=== PATIENT | female | born 1965 | race Caucasian/White ===

== ENCOUNTER 2017-05-05 14:17 | Emergency (ER) | payer OTHER ==
[~2017-05-05] VITALS: Ht 162.6 cm; Wt 85.0 kg
[2017-05-05] MEDS ORDERED: PLEASE ENTER HEIGHT AND WEIGHT AND ALLERGIES MC SCH (14:41)
[2017-05-05] MEDS ORDERED: PHEN30CA PO (14:44)
[2017-05-05] MEDS ORDERED: LISI2.5T PO (14:44)
[2017-05-05] MEDS ORDERED: KETOROLAC 30 MG/1 ML ONE (14:45)
[2017-05-05] MEDS ORDERED: CYCLOBENZAPRINE 10 MG TABLET ONE (14:45)
[2017-05-05] MEDS ORDERED: CYCLOBENZAPRINE 10 MG TABLET PO ONE (15:00)
[2017-05-05] MEDS ORDERED: KETOROLAC 30 MG/1 ML IVPush ONE (15:00)
[2017-05-05 15:15] VITALS: BP 145/98
== END 2017-05-05 15:43 | disposition home or self-care (01) ==
LOC: ED 15:30
DX: S00.03XA Contusion of scalp, initial encounter (principal); S80.02XA Contusion of left knee, initial encounter; S80.01XA Contusion of right knee, initial encounter; M54.5 Low back pain; V59.49XA Driver of pick-up truck or van injured in collision with other motor vehicles in traffic accident, initial encounter; Y93.89 Activity, other specified; Y92.410 Unspecified street and highway as the place of occurrence of the external cause; Y99.9 Unspecified external cause status
CPT/HCPCS: 96374; 99284; J1885